=== PATIENT | female | born 1995 | race Caucasian/White ===

== ENCOUNTER 2017-08-15 12:15 | Emergency (ER) | payer OTHER ==
[~2017-08-15] VITALS: Ht 162.6 cm; Wt 80.5 kg
[2017-08-15 14:42] LABS: HEMATOCRIT 41.1 % (36.0-46.0); HEMOGLOBIN 13.9 G/DL (11.9-15.5); MCH 30.5 PG (29.0-34.0); MCHC 33.8 G/DL (30.0-36.0); MCV 90.3 FL (83-99); PLATELET COUNT 290 K/uL (156-360); RBC DIS.WIDTH-CV 12.6 % (11.8-14.6); RBC DIS.WIDTH-SD 41.3 % (39-53); RED BLOOD COUNT 4.55 M/uL (3.80-5.20); WHITE BLOOD COUNT 14.5 K/uL (4.1-10.2)
[2017-08-15 15:23] LABS: CHLORIDE 105 MEQ/L (99-109); POTASSIUM 4.5 MEQ/L (3.7-5.4); SODIUM 141 MEQ/L (136-147)
[2017-08-15 15:29] LABS: CREATININE 0.9 MG/DL (0.6-1.3); GFR ESTIMATE (CALCULATED) > 59 mL/min/; GLUCOSE 95 mg/dL (70-99); UREA NITROGEN (BUN) 13 mg/dL (9-23)
[2017-08-15 16:12] LABS: QUANTITATIVE HCG < 4.0 MIU/ML
[2017-08-15 17:01] VITALS: BP 135/70
== END 2017-08-15 17:01 | disposition home or self-care (01) ==
LOC: EDBD 12:15 → EME 12:15
DX: R55 Syncope and collapse (principal)
CPT/HCPCS: 80048; 84702; 85027; 93005; 99281; 99285; J2405; J7030